=== PATIENT | female | born 1960 | race Two or more races ===

== ENCOUNTER 2023-10-03 10:01 | Emergency (ER) | payer MEDICAID, OTHER ==
[~2023-10-03] VITALS: Ht 162.6 cm; Wt 81.3 kg
[2023-10-03 10:01] VITALS: TEMP 98.1
[~2023-10-03 10:01] MED LIST: AMLO1TAB23 PO; GABA-1250 PO; LISI20TA56 PO; LORA-483 PO; SITA100T7 PO
[2023-10-03 11:04] LABS: Urine Bacteria None Seen /hpf (None Seen)
[2023-10-03 11:20] VITALS: PULSE 95; RESP 16; O2SAT 96
[2023-10-03 11:34] LABS: Basophils # (auto) 0 10 ^3/uL (0-0.2); Basophils % (auto) 0.5 % (0.0-2.0); Eosinophils # (auto) 0.2 10 ^3/uL (0-0.8); Hematocrit 36.1 % (36.0-46.0); Hemoglobin 12.2 g/dL (12.2-16.2); Lymphocytes # (auto) 2.1 10 ^3/uL (0.4-5.4); Lymphocytes % (auto) 24.3 % (10.0-50.0); Mean Corpuscular Hemoglobin 29.3 pg (28.0-32.0); Mean Corpuscular Hgb Conc. 33.8 g/dL (32.0-36.0); Mean Corpuscular Volume 86.7 fL (80.0-100.0); Monocytes # (auto) 0.5 10 ^3/uL (0-1.3); Monocytes % (auto) 5.7 % (0.0-12.0); Neutrophils # (auto) 5.8 10 ^3/uL (1.6-8.6); Neutrophils % (auto) 67.5 % (37.0-80.0); Nucleated Red Blood Cells % 0.1 %; Red Blood Cells 4.16 10^6/uL (4.0-5.20); Red Cell Distribution Width 14.3 % (11.8-14.3); White Blood Cell 8.6 10^3/uL (4.4-10.8)
[2023-10-03 11:45] LABS: Anion Gap 3 (5-15); Carbon Dioxide 27 mmol/L (20-30); Chloride 106 mmol/L (98-107); Potassium 4.3 mmol/L (3.5-5.1); Sodium 136 mmol/L (136-145)
[2023-10-03 11:46] LABS: Urine Blood 1+ /uL (Negative); Urine Clarity Clear (Clear); Urine Color Light-Yellow (Yellow); Urine Hyaline Cast FEW /lpf (0 - 2); Urine Protein, UAD 2+ (Negative); Urine Specific Gravity 1.017 (1.001-1.035); Urine Urobilinogen Normal (Negative); Urine WBC 11 /hpf (0 - 5); Urine pH 5.5 (5.0-9.0)
[2023-10-03 11:46] LABS: Calcium 9.6 mg/dL (8.7-10.4)
[2023-10-03 11:50] LABS: Glucose 222 mg/dL (74-106)
[2023-10-03 11:51] LABS: Blood Urea Nitrogen 24 mg/dL (9-23)
[2023-10-03 12:38] VITALS: BP 150/69; PULSE 70; RESP 18; O2SAT 96
[2023-10-03] MEDS ORDERED: CIPR-173 PO (13:02)
[2023-10-03] MEDS ORDERED: ACET-1080 PO (13:02)
== END 2023-10-03 13:15 | disposition home or self-care (01) ==
LOC: ER 10:07
DX: N39.0 Urinary tract infection, site not specified (principal); E11.9 Type 2 diabetes mellitus without complications; Z88.0 Allergy status to penicillin
CPT/HCPCS: 36415; 74176; 80048; 81001; 85025